=== PATIENT | female | born 1995 | race Caucasian/White ===

== ENCOUNTER 2021-06-11 02:52 | Inpatient (IN) | payer BC ==
[2021-06-11 03:09] VITALS: BMI 30.4
[2021-06-11] MEDS ORDERED: Ibuprofen 800 MG TAB PO PRN (03:22)
[2021-06-11] MEDS ORDERED: Acetaminophen 500 MG TAB PO PRN (03:22)
[2021-06-11] MEDS ORDERED: Misoprostol 200 MCG TAB PR PRN (03:22)
[2021-06-11] MEDS ORDERED: Ondansetron PF 4 MG/2 ML Vial IVP PRN ×3 (03:22→11:12)
[2021-06-11] MEDS ORDERED: hydrALAZINE 20 MG/ML VIAL SLOW IVP PRN ×2 (03:22→11:12)
[2021-06-11] MEDS ORDERED: Promethazine HCl 25 MG/ML VIAL IM PRN ×3 (03:22→11:12)
[2021-06-11] MEDS ORDERED: Butorphanol Tartrate 1 MG/ML VIAL SLOW IVP PRN (03:22)
[2021-06-11] MEDS ORDERED: Lidocaine 1% (PF) 30 ML VIAL SC PRN (03:22)
[2021-06-11] MEDS ORDERED: Methylergonovine 0.2 MG/ML VIAL IM PRN (03:22)
[2021-06-11] MEDS ORDERED: Carboprost 250 MCG/ML AMP IM PRN (03:22)
[2021-06-11] MEDS ORDERED: NS w/ Oxytocin 30 units 500 ML IV SCH ×2 (03:30)
[2021-06-11] MEDS ORDERED: Fentanyl 2 mcg/Bup 0.1% Cadd 100 ML ONE (04:51)
[2021-06-11 05:02] LABS: Hemoglobin 13.3 g/dL (12.0-15.5); Mean Corpuscular HGB CONC 33.8 g/dL (32.0-36.0); Mean Corpuscular Hemoglobin 31.2 pg (27.0-33.0); Mean Corpuscular Volume 92.5 fl (81.6-98.3); Mean Platelet Volume 11.8 fl (7.4-10.4); Platelet Count 159 10x3/uL (150-450); Red Blood Cell (RBC) Count 4.26 10x6/uL (3.90-5.03); White Blood Cell (WBC) Count 10.1 10x3/uL (3.5-10.5)
[2021-06-11 05:26] LABS: SARS-CoV-2 NAA Rapid Test Not Detected (NotDetected)
[2021-06-11 05:27] LABS: Hep B Surf Ag Non-Reactive S/CO (NonReactive); Syphilis Antibody Nonreactive (Nonreactive); Syphilis Antibody Index 0.09 S/CO (<1.00 Non-Reactive)
[2021-06-11] MEDS ORDERED: Naloxone HCl 0.4 mg/ml Vial IVP PRN ×2 (05:53)
[2021-06-11] MEDS ORDERED: ePHEDrine Sulfate 50 MG/10 ML VIAL SLOW IVP PRN (05:53)
[2021-06-11] MEDS ORDERED: Lactated Ringer's 500 ML IV PRN (05:53)
[2021-06-11] MEDS ORDERED: Hydrocerin (Eucerin) Cream 120 gm Jar TOP PRN (05:53)
[2021-06-11] MEDS ORDERED: diphenhydrAMINE 50 MG/ML VIAL IVP PRN (05:53)
[2021-06-11] MEDS ORDERED: Acetaminophen 325 MG TAB PO PRN (05:53)
[2021-06-11] MEDS ORDERED: Communication Order-Pharmacy FS SCH (06:00)
[2021-06-11] MEDS ORDERED: Fentanyl 2 mcg/Bupivacaine 0.1% Cassette 100 ML EPIDURAL SCH (06:00)
[2021-06-11 06:01] LABS: HBSAg Index 0.27 S/CO (0-0.99)
[2021-06-11 10:14] LABS: HIV (1/2) Antibody/Antigen Non-Reactive (NonReactive); HIV 1/2 INDEX 0.09 S/CO (<1.00)
[2021-06-11] MEDS ORDERED: Benzocaine-Menthol 82.5 ML CAN TOP PRN (11:12)
[2021-06-11] MEDS ORDERED: Boostrix 0.5 ML (Tdap) VIAL IM ONE (11:12)
[2021-06-11] MEDS ORDERED: Preparation H Ointment 28 GM TUBE PR PRN (11:12)
[2021-06-11] MEDS ORDERED: diphenhydrAMINE 25 MG CAP PO PRN (11:12)
[2021-06-11] MEDS ORDERED: Bisacodyl 10 MG SUPP PR PRN (11:12)
[2021-06-11] MEDS ORDERED: Milk Of Magnesia 30 ML UDCUP PO PRN (11:12)
[2021-06-11] MEDS ORDERED: Lanolin Ointment 7 GM TUBE TOP PRN (11:12)
[2021-06-11] MEDS ORDERED: HYDROcodone/Acetaminophen 5/325 mg Tablet PO PRN ×2 (11:12)
[2021-06-11] MEDS: Ibuprofen 800 MG TAB PO SCH ×2 (15:16→22:18)
[2021-06-11] MEDS: Ferrous Sulfate 325 MG TAB PO SCH (16:35)
[2021-06-11] MEDS: Docusate Calcium (SURFAK) 240 MG CAP PO SCH (22:19)
[2021-06-12] MEDS: Ibuprofen 800 MG TAB PO SCH ×3 (06:15→21:11)
[2021-06-12] MEDS: Ferrous Sulfate 325 MG TAB PO SCH ×2 (09:00→17:17)
[2021-06-12] MEDS: Prenatal Vitamin 1 TAB PO SCH (09:02)
[2021-06-12] MEDS: Docusate Calcium (SURFAK) 240 MG CAP PO SCH ×2 (09:02→21:11)
[2021-06-12 11:42] LABS: #Monocytes 0.6 10x3/uL (0.0-1.1); #Neutrophils 9.8 10x3/uL (1.5-8.4); %Basophils 0.2 % (0.0-2.0); %Eosinophils 0.3 % (0.0-6.0); %Lymphocytes 20.3 % (18.0-47.0); %Monocytes 4.7 % (0.0-10.0); Hemoglobin 11.6 g/dL (12.0-15.5); Mean Corpuscular HGB CONC 33.9 g/dL (32.0-36.0); Mean Corpuscular Hemoglobin 31.5 pg (27.0-33.0); Mean Corpuscular Volume 92.9 fl (81.6-98.3); Mean Platelet Volume 11.6 fl (7.4-10.4); Platelet Count 141 10x3/uL (150-450); RBC Distribution Width 13.4 % (11.5-14.5); Red Blood Cell (RBC) Count 3.68 10x6/uL (3.90-5.03); White Blood Cell (WBC) Count 13.3 10x3/uL (3.5-10.5)
[2021-06-12] MEDS ORDERED: NIFEdipine XL 30 MG TAB PO SCH (11:45)
[2021-06-12 12:07] LABS: ALT (SGPT) 18 U/L (8-55); AST (SGOT) 27 U/L (5-34); Albumin 3.2 g/dL (3.5-5.0); Alkaline Phosphatase 86 U/L (40-110); Anion Gap 11 mmol/L (10-20); BUN (Urea Nitrogen) 9 mg/dL (7.0-18.7); Bilirubin, Total 0.2 mg/dL (0.2-1.2); Calc. Creatinine Clearance 133 mL/min (70-130); Calcium 8.6 mg/dL (7.8-10.44); Carbon Dioxide 21 mmol/L (22-29); Chloride 108 mmol/L (98-107); Globulin 2.5 g/dL (2.4-3.5); Glucose 100 mg/dL (70-105); Potassium 4.1 mmol/L (3.5-5.1); Protein, Total 5.7 g/dL (6.0-8.3); Sodium 136 mmol/L (136-145)
[2021-06-13] MEDS: Ibuprofen 800 MG TAB PO SCH (04:55)
[2021-06-13] MEDS: Ferrous Sulfate 325 MG TAB PO SCH (08:10)
[2021-06-13] MEDS: Prenatal Vitamin 1 TAB PO SCH (08:12)
[2021-06-13] MEDS: Docusate Calcium (SURFAK) 240 MG CAP PO SCH (08:12)
[2021-06-13] MEDS ORDERED: NIFEdipine XL 30 MG TAB PO SCH (09:00)
[2021-06-13 11:46] VITALS: BP 148/80; TEMP 97.9
== END 2021-06-13 13:45 | disposition home or self-care (01) | DRG 807 ==
LOC: CSHLD/OP 02:52 → CSHLD 03:24 → CSHPP 11:40
PROVIDERS: ADMIT Student in an Organized Health Care Education/Training Program; ATTEND Student in an Organized Health Care Education/Training Program
PROC: 10E0XZZ Delivery of Products of Conception, External Approach (ICD-10-PCS; principal; 2021-06-11)
PROC: 10907ZC Drainage of Amniotic Fluid, Therapeutic from Products of Conception, Via Natural or Artificial Opening (ICD-10-PCS; 2021-06-11)
DX: O80 Encounter for full-term uncomplicated delivery (principal); Z37.0 Single live birth; Z3A.37 37 weeks gestation of pregnancy; Z20.822 Contact with and (suspected) exposure to COVID-19
CPT/HCPCS: 36415; 51702; 80053; 85025; 85027; 86780; 86850; 86900; 86901; 87340; 87389; 99285; J0360; J2405; U0002

== ENCOUNTER 2021-06-17 21:51 | Emergency (ER) | payer BC ==
[2021-06-17] MEDS ORDERED: hydrALAZINE 25 MG TAB ONE (22:39)
[2021-06-17 22:42] LABS: #Eosinphils 0.1 10x3/uL (0.0-0.5); #Monocytes 0.6 10x3/uL (0.0-1.1); %Basophils 0.3 % (0.0-2.0); %Eosinophils 1.5 % (0.0-6.0); %Lymphocytes 34.6 % (18.0-47.0); %Monocytes 7.1 % (0.0-10.0); %Neutrophils 56.2 % (40.0-75.0); Hemoglobin 13.5 g/dL (12.0-15.5); Mean Corpuscular HGB CONC 34.2 g/dL (32.0-36.0); Mean Corpuscular Hemoglobin 31.1 pg (27.0-33.0); Platelet Count 265 10x3/uL (150-450); RBC Distribution Width 12.7 % (11.5-14.5); Red Blood Cell (RBC) Count 4.34 10x6/uL (3.90-5.03); White Blood Cell (WBC) Count 8.8 10x3/uL (3.5-10.5)
[2021-06-17 22:58] LABS: ALT (SGPT) 31 U/L (8-55); AST (SGOT) 22 U/L (5-34); Albumin 3.6 g/dL (3.5-5.0); Alkaline Phosphatase 114 U/L (40-110); Anion Gap 14 mmol/L (10-20); BUN (Urea Nitrogen) 21 mg/dL (7.0-18.7); Bilirubin, Total 0.2 mg/dL (0.2-1.2); Calc. Creatinine Clearance 0 mL/min (70-130); Calcium 9.4 mg/dL (7.8-10.44); Carbon Dioxide 21 mmol/L (22-29); Chloride 107 mmol/L (98-107); Globulin 3.5 g/dL (2.4-3.5); Glucose 97 mg/dL (70-105); Potassium 4.3 mmol/L (3.5-5.1); Protein, Total 7.1 g/dL (6.0-8.3); Sodium 138 mmol/L (136-145)
[2021-06-17 23:17] LABS: Bilirubin Neg (Negative); Blood, Urine 250 (Negative); Clarity Slightly Cloudy (Clear); Glucose, Urine (Dipstick) Normal (Negative); Ketone, Urine Negative (Negative); Leukocyte 100 (Negative); Nitrite Negative (Negative); Protein, Urine (Dipstick) 100 mg/dl (Neg-Trace); Urobilinogen Normal mg/dL (Less than 2)
[2021-06-17 23:24] LABS: RBC/HPF Greater than 50 HPF (0-3)
[2021-06-17 23:25] LABS: Bacteria/HPF None Seen HPF (None Seen)
== END 2021-06-17 23:40 | disposition home or self-care (01) ==
LOC: CSHERS 21:51
DX: O13.5 Gestational [pregnancy-induced] hypertension without significant proteinuria, complicating the puerperium (principal)
CPT/HCPCS: 36415; 80053; 81003; 81015; 85025; 93005